=== PATIENT | male | born 1995 | race African-American/Black ===

== ENCOUNTER 2018-09-19 14:13 | Emergency (ER) | payer OTHER ==
[~2018-09-19] VITALS: Ht 180.3 cm; Wt 86.2 kg
[2018-09-19 16:32] LABS: BASOPHILS ABSOLUTE AUTO 0.03 K/mm3 (0.00-0.23); BASOPHILS PERCENT AUTO 0 % (0-2); EOSINOPHILS ABSOLUTE AUTO 0.09 K/mm3 (0.00-0.68); EOSINOPHILS PERCENT AUTO 1 % (0-6); Hematocrit 40.2 % (37.0-53.0); IMMATURE GRAN ABSOLUTE AUTO 0.01 K/mm3 (0.00-0.10); IMMATURE GRAN PERCENT AUTO 0 % (0-1); LYMPHOCYTES ABSOLUTE AUTO 2.09 K/mm3 (0.84-5.20); LYMPHOCYTES PERCENT AUTO 26 % (21-46); MONOCYTES ABSOLUTE AUTO 0.75 K/mm3 (0.16-1.47); MONOCYTES PERCENT AUTO 9 % (4-13); Mean Corpuscular HGB 32.3 pg (26.0-34.0); Mean Corpuscular HGB Conc 34.8 g/dL (31.5-36.5); Mean Corpuscular Volume 93 fL (80-100); NEUTROPHILS ABSOLUTE AUTO 5.07 K/mm3 (1.96-9.15); NEUTROPHILS PERCENT AUTO 63 % (41-73); Platelet Count 194 K/mm3 (150-400); RDW Coefficient Variation 12.1 % (11.7-14.2); RDW Standard Deviation 41.7 fL (35.1-46.3); Red Blood Cell Count 4.34 M/mm3 (4.30-5.90); White Blood Cell Count 8.04 K/mm3 (4.00-11.30)
[2018-09-19 16:48] LABS: Alanine Aminotransfer (ALT/SGP 17 U/L (12-78); Albumin, Blood 3.7 g/dL (3.4-5.0); Albumin/Globulin Ratio 0.9 (0.8-1.8); Alk Phos 62 U/L (50-136); Anion Gap 4 mmol/L (6-16); Aspartate Aminotrans (AST/SGOT 13 U/L (12-37); Bilirubin, Total 0.7 mg/dL (0.1-1.0); Blood Urea Nitrogen 10 mg/dL (8-24); Bun/Creatinine Ratio 11.5 (12.0-20.0); CO2, Blood 29 mmol/L (21-32); Calcium, Blood 8.5 mg/dL (8.5-10.1); Chloride, Blood 105 mmol/L (98-108); Creatinine, Blood 0.87 mg/dL (0.60-1.20); Globulin, Blood 3.9 g/dL (2.2-4.0); Glomerular Filtration Rate >60 (60-); Glucose, Blood 87 mg/dL (70-99); Potassium, Blood 3.9 mmol/L (3.5-5.5); Sodium, Blood 138 mmol/L (136-145); Total Protein, Blood 7.6 g/dL (6.4-8.2)
[2018-09-20] MEDS ORDERED: Norco 5-325 Ta1 EACH PO (15:02)
[2018-09-20] MEDS ORDERED: Keflex500 MG PO (15:02)
[2018-09-20] MEDS ORDERED: Bactrim Ds Tab1 EACH PO (15:02)
== END 2018-09-19 18:44 | disposition left against medical advice (07) ==
LOC: ER 14:13
PROVIDERS: Physician Assistant
DX: N50.812 Left testicular pain (principal); N50.811 Right testicular pain; K62.89 Other specified diseases of anus and rectum; Z53.20 Procedure and treatment not carried out because of patient's decision for unspecified reasons
CPT/HCPCS: 72193; 80053; 85025; 99283-25; Q9967

== ENCOUNTER 2019-06-14 11:07 | Emergency (ER) | payer OTHER ==
[~2019-06-14] VITALS: Ht 180.3 cm; Wt 78.0 kg
[~2019-06-14 11:07] MED LIST: Bactrim Ds Tab1 EACH PO; Keflex500 MG PO; Norco 5-325 Ta1 EACH PO
[2019-06-14] MEDS ORDERED: [UNRECOGNIZED DRUG - SUPPLY] TOP (11:48)
== END 2019-06-14 11:57 | disposition home or self-care (01) ==
LOC: ER 11:07
DX: M21.41 Flat foot [pes planus] (acquired), right foot (principal); Z87.891 Personal history of nicotine dependence; Z91.018 Allergy to other foods; Z91.013 Allergy to seafood; Z91.040 Latex allergy status
CPT/HCPCS: 73630; 99283-25

== ENCOUNTER 2019-08-01 10:40 | Emergency (ER) | payer OTHER ==
[~2019-08-01] VITALS: Ht 180.3 cm; Wt 79.4 kg
[~2019-08-01 10:40] MED LIST changes: +[UNRECOGNIZED DRUG - SUPPLY] TOP
[2019-08-01] MEDS ORDERED: IBUP800 PO (11:52)
== END 2019-08-01 12:06 | disposition home or self-care (01) ==
LOC: ER 10:40
DX: M21.41 Flat foot [pes planus] (acquired), right foot (principal); Z91.040 Latex allergy status; Z91.013 Allergy to seafood; Z87.891 Personal history of nicotine dependence
CPT/HCPCS: 73630; 99283-25

== ENCOUNTER 2020-01-11 10:39 | Emergency (ER) | payer OTHER ==
[~2020-01-11] VITALS: Ht 177.8 cm; Wt 93.4 kg
[~2020-01-11 10:39] MED LIST changes: +IBUP800 PO
[2020-01-11] MEDS ORDERED: Neurontin 300300 MG PO (11:36)
== END 2020-01-11 11:53 | disposition home or self-care (01) ==
LOC: ER 10:39
DX: G57.91 Unspecified mononeuropathy of right lower limb (principal); Z91.040 Latex allergy status; Z91.013 Allergy to seafood
CPT/HCPCS: 99282

== ENCOUNTER 2020-12-09 12:23 | Emergency (ER) | payer OTHER ==
[~2020-12-09] VITALS: Ht 180.3 cm; Wt 84.8 kg
[~2020-12-09 12:23] MED LIST changes: +Neurontin 300300 MG PO
[2020-12-09 14:00] LABS: BASOPHILS ABSOLUTE AUTO 0.03 K/mm3 (0.00-0.23); BASOPHILS PERCENT AUTO 1 % (0-2); EOSINOPHILS ABSOLUTE AUTO 0.14 K/mm3 (0.00-0.68); EOSINOPHILS PERCENT AUTO 2 % (0-6); Hematocrit 45.1 % (37.0-53.0); Hemoglobin 15.5 g/dL (13.5-17.5); IMMATURE GRAN ABSOLUTE AUTO 0.04 K/mm3 (0.00-0.10); IMMATURE GRAN PERCENT AUTO 1 % (0-1); LYMPHOCYTES ABSOLUTE AUTO 2.19 K/mm3 (0.84-5.20); LYMPHOCYTES PERCENT AUTO 38 % (21-46); MONOCYTES ABSOLUTE AUTO 0.49 K/mm3 (0.16-1.47); MONOCYTES PERCENT AUTO 9 % (4-13); Mean Corpuscular HGB 32.4 pg (26.0-34.0); Mean Corpuscular HGB Conc 34.4 g/dL (31.5-36.5); Mean Corpuscular Volume 94 fL (80-100); Mean Platelet Volume 9.9 fL (9.1-12.4); NEUTROPHILS ABSOLUTE AUTO 2.86 K/mm3 (1.96-9.15); NEUTROPHILS PERCENT AUTO 50 % (41-73); Platelet Count 243 K/mm3 (150-400); RDW Coefficient Variation 13.2 % (11.7-14.2); Red Blood Cell Count 4.79 M/mm3 (4.30-5.90); White Blood Cell Count 5.75 K/mm3 (4.00-11.30)
[2020-12-09 14:03] LABS: Anion Gap 2 mmol/L (6-16); Blood Urea Nitrogen 10 mg/dL (8-24); Bun/Creatinine Ratio 11.1 (12.0-20.0); CO2, Blood 30 mmol/L (21-32); Calcium, Blood 9.2 mg/dL (8.5-10.1); Chloride, Blood 109 mmol/L (98-108); Glomerular Filtration Rate >60 (60-); Glucose, Blood 89 mg/dL (70-99); Potassium, Blood 4.2 mmol/L (3.5-5.5); Sodium, Blood 141 mmol/L (136-145)
[2020-12-09 14:45] LABS: SARS-Cov-2 (COVID-19) PCR, MMC NEGATIVE (NEGATIVE)
== END 2020-12-09 14:22 | disposition home or self-care (01) ==
LOC: ER 12:23
PROVIDERS: Emergency Medicine; Physician Assistant
DX: B34.9 Viral infection, unspecified (principal); R06.00 Dyspnea, unspecified; Z20.822 Contact with and (suspected) exposure to COVID-19; Z91.040 Latex allergy status; Z91.013 Allergy to seafood
CPT/HCPCS: 71045; 80048; 85025; 99284-25; A9270; U0004

== ENCOUNTER 2021-03-10 17:03 | Emergency (ER) | payer OTHER ==
[~2021-03-10] VITALS: Ht 180.3 cm; Wt 81.7 kg
[2021-03-10] MEDS ORDERED: Vibramycin100 MG PO (19:23)
== END 2021-03-10 19:45 | disposition home or self-care (01) ==
LOC: ER 17:03
DX: N45.1 Epididymitis (principal); D57.1 Sickle-cell disease without crisis; Z87.891 Personal history of nicotine dependence; Z91.040 Latex allergy status; Z91.013 Allergy to seafood
CPT/HCPCS: 76870; 96372; 99284-25; A9270; J0696

== ENCOUNTER 2021-07-06 14:49 | Emergency (ER) | payer OTHER ==
[~2021-07-06] VITALS: Ht 182.9 cm; Wt 86.2 kg
[~2021-07-06 14:49] MED LIST changes: +Vibramycin100 MG PO
[2021-07-06 15:47] LABS: BASOPHILS ABSOLUTE AUTO 0.04 K/mm3 (0.00-0.23); BASOPHILS PERCENT AUTO 1 % (0-2); EOSINOPHILS ABSOLUTE AUTO 0.13 K/mm3 (0.00-0.68); EOSINOPHILS PERCENT AUTO 2 % (0-6); Hematocrit 41.3 % (37.0-53.0); Hemoglobin 14.7 g/dL (13.5-17.5); IMMATURE GRAN ABSOLUTE AUTO 0.01 K/mm3 (0.00-0.10); IMMATURE GRAN PERCENT AUTO 0 % (0-1); LYMPHOCYTES ABSOLUTE AUTO 2.32 K/mm3 (0.84-5.20); LYMPHOCYTES PERCENT AUTO 43 % (21-46); MONOCYTES ABSOLUTE AUTO 0.43 K/mm3 (0.16-1.47); MONOCYTES PERCENT AUTO 8 % (4-13); Mean Corpuscular HGB 32.1 pg (26.0-34.0); Mean Corpuscular HGB Conc 35.6 g/dL (31.5-36.5); Mean Corpuscular Volume 90 fL (80-100); Mean Platelet Volume 9.7 fL (9.1-12.4); NEUTROPHILS ABSOLUTE AUTO 2.48 K/mm3 (1.96-9.15); NEUTROPHILS PERCENT AUTO 46 % (41-73); Platelet Count 233 K/mm3 (150-400); RDW Coefficient Variation 12.6 % (11.7-14.2); RDW Standard Deviation 41.3 fL (35.1-46.3); Red Blood Cell Count 4.58 M/mm3 (4.30-5.90); White Blood Cell Count 5.41 K/mm3 (4.00-11.30)
[2021-07-06 16:08] LABS: Alanine Aminotransfer (ALT/SGP 24 U/L (12-78); Albumin, Blood 3.6 g/dL (3.4-5.0); Albumin/Globulin Ratio 0.9 (0.8-1.8); Alk Phos 65 U/L (50-136); Anion Gap 4 mmol/L (6-16); Aspartate Aminotrans (AST/SGOT 21 U/L (12-37); Bilirubin, Total 0.7 mg/dL (0.1-1.0); Blood Urea Nitrogen 12 mg/dL (8-24); Bun/Creatinine Ratio 13.3 (12.0-20.0); CO2, Blood 28 mmol/L (21-32); Calcium, Blood 8.6 mg/dL (8.5-10.1); Chloride, Blood 110 mmol/L (98-108); Globulin, Blood 3.9 g/dL (2.2-4.0); Glomerular Filtration Rate >60 (60-); Glucose, Blood 116 mg/dL (70-99); Potassium, Blood 3.9 mmol/L (3.5-5.5); Sodium, Blood 142 mmol/L (136-145); Total Protein, Blood 7.5 g/dL (6.4-8.2)
[2021-07-06] MEDS ORDERED: ANUSOL-HC30 G1 PR (20:17)
[2021-07-07] MEDS ORDERED: LORCET 5-325 M1 EACH PO (15:06)
== END 2021-07-06 20:35 | disposition home or self-care (01) ==
LOC: ER 14:49
PROVIDERS: Physician Assistant
DX: K64.8 Other hemorrhoids (principal); F17.200 Nicotine dependence, unspecified, uncomplicated; Z91.040 Latex allergy status; Z91.013 Allergy to seafood
CPT/HCPCS: 36415; 80053; 85025; 96372; 99283; J1885

== ENCOUNTER 2023-08-14 02:02 | Emergency (ER) | payer OTHER ==
[~2023-08-14] VITALS: Ht 182.9 cm; Wt 77.1 kg
[~2023-08-14 02:02] MED LIST changes: +ANUSOL-HC30 G1 PR; +LORCET 5-325 M1 EACH PO
[2023-08-14 02:35] VITALS: BP 139/94
[2023-08-14] MEDS ORDERED: DIAZ2 PO (05:38)
[2023-08-14] MEDS ORDERED: Ibuprofen600 MG PO (05:39)
[2023-08-14] MEDS ORDERED: LIDO700A20 TOP (05:39)
== END 2023-08-14 05:48 | disposition home or self-care (01) ==
LOC: ER 02:02
DX: M62.838 Other muscle spasm (principal); D57.3 Sickle-cell trait; Z91.011 Allergy to milk products; Z91.040 Latex allergy status; Z91.013 Allergy to seafood; Z87.891 Personal history of nicotine dependence
CPT/HCPCS: 71046; 96372; 99283-25; A9270; J1885

== ENCOUNTER 2024-08-12 20:00 | Emergency (ER) | payer OTHER ==
[~2024-08-12] VITALS: Ht 182.9 cm; Wt 78.0 kg
[~2024-08-12 20:00] MED LIST changes: +DIAZ2 PO; +Ibuprofen600 MG PO; +LIDO700A20 TOP
[2024-08-12 20:33] LABS: BASOPHILS ABSOLUTE AUTO 0.02 K/mm3 (0.00-0.23); BASOPHILS PERCENT AUTO 0 % (0-2); EOSINOPHILS ABSOLUTE AUTO 0.14 K/mm3 (0.00-0.68); EOSINOPHILS PERCENT AUTO 2 % (0-6); Hematocrit 37.1 % (37.0-53.0); Hemoglobin 13.2 g/dL (13.5-17.5); IMMATURE GRAN ABSOLUTE AUTO 0.03 K/mm3 (0.00-0.10); IMMATURE GRAN PERCENT AUTO 1 % (0-1); LYMPHOCYTES ABSOLUTE AUTO 0.63 K/mm3 (0.84-5.20); LYMPHOCYTES PERCENT AUTO 11 % (21-46); MONOCYTES ABSOLUTE AUTO 0.55 K/mm3 (0.16-1.47); MONOCYTES PERCENT AUTO 10 % (4-13); Mean Corpuscular HGB 31.9 pg (26.0-34.0); Mean Corpuscular HGB Conc 35.6 g/dL (31.5-36.5); Mean Corpuscular Volume 90 fL (80-100); Mean Platelet Volume 9.6 fL (9.1-12.4); NEUTROPHILS ABSOLUTE AUTO 4.35 K/mm3 (1.96-9.15); NEUTROPHILS PERCENT AUTO 76 % (41-73); Platelet Count 211 K/mm3 (150-400); RDW Standard Deviation 43.2 fL (35.1-46.3); RETICULOCYTE ABSOLUTE 0.0675 M/mm3 (0.0200-0.1100); RETICULOCYTE COUNT PERCENT 1.63 % (0.50-2.50); Red Blood Cell Count 4.14 M/mm3 (4.30-5.90); White Blood Cell Count 5.72 K/mm3 (4.00-11.30)
[2024-08-12 20:56] LABS: Bun/Creatinine Ratio 9.5 (12.0-20.0); Calcium, Blood 8.6 mg/dL (8.5-10.1); Creatinine, Blood 0.95 mg/dL (0.60-1.20); Potassium, Blood 3.6 mmol/L (3.5-5.5)
[2024-08-12] MEDS ORDERED: FentaNYL Citrate 50 MCG/ML 2 ML Injection IV PRN (22:30)
[2024-08-12] MEDS ORDERED: Ketorolac Tromethamine 30mg Vial IV ONE (22:35)
[2024-08-12] MEDS ORDERED: NS 1,000 ML IV SCH (22:35)
[2024-08-12 22:59] LABS: CORONAVIRUS COVID-19 AG Negative (NEGATIVE); INFLUENZA A AG Positive (NEGATIVE); INFLUENZA B AG Negative (NEGATIVE)
[2024-08-12 23:50] LABS: IMMATURE RETIC FRACTION 8.9 % (2.3-16.0); RETIC HGB EQUIVALENT 35.2 pg (28.20-36.60); RETICULOCYTE ABSOLUTE 0.0572 M/mm3 (0.0200-0.1100); RETICULOCYTE COUNT PERCENT 1.51 % (0.50-2.50)
[2024-08-12] MEDS ORDERED: Acetaminophen 500 MG Tab PO ONE (23:55)
[2024-08-12] MEDS ORDERED: Ondansetron HCl 2 MG / ML 2ML Vial IV ONE (23:55)
[2024-08-12] MEDS ORDERED: Oseltamivir Phosphate 75 MG Cap PO ONE (23:55)
[2024-08-13 02:19] LABS: Source, Urine Clean Catch
[2024-08-13 02:35] LABS: Bilirubin, Urine Neg (Neg); Blood, Urine Neg (Neg); Glucose Qualitative, Urine Neg (Neg); Ketones, Urine Neg (Neg); Leukocyte Esterase, Urine Neg (Neg); Nitrite, Urine Neg (Neg); Protein, Urine 2+ (Neg); Specific Gravity, Urine 1.015 (1.003-1.022); Urobilinogen, Urine 1+ (Normal)
[2024-08-13 03:00] VITALS: BP 111/76
[2024-08-13 03:00] LABS: Appearance, Urine Clear (Clear); Color, Urine Yellow (P-Yellow)
[2024-08-13 03:02] LABS: Bacteria Few /hpf; Red Blood Cells, Urine 0-2 /hpf (0-2); Squamous Epithelial Cells Few /hpf (Few); White Blood Cells, Urine 0-2 /hpf (0-5)
[2024-08-13] MEDS ORDERED: ACET500 PO (03:18)
[2024-08-13] MEDS ORDERED: OSEL75CA PO (03:27)
== END 2024-08-13 03:15 | disposition home or self-care (01) ==
LOC: ER 20:00
PROVIDERS: Emergency Medicine; Student in an Organized Health Care Education/Training Program
DX: J10.1 Influenza due to other identified influenza virus with other respiratory manifestations (principal); Z87.891 Personal history of nicotine dependence; Z88.0 Allergy status to penicillin; Z91.040 Latex allergy status; Z91.011 Allergy to milk products; Z91.013 Allergy to seafood
CPT/HCPCS: 70450; 71046; 80048; 81001; 85025; 85045; 87428-QW; 93005; 93010; 96361; 96374; 96375; 99284-25; A9270; J1885; J2405; J3010; J7030